=== PATIENT | female | born 1975 | race Caucasian/White ===

== ENCOUNTER → 2019-02-20 | Outpatient (CLI) | payer MEDICAID ==
[2019-02-20 09:13] LABS: Basophils % (A) 1 %; Eosinophils # (A) 0.2 k/uL (0-0.7); Eosinophils % (A) 4 %; HCT 39.5 % (34.0-46.0); HGB 12.9 gm/dL (11.4-16.0); Lymphocytes # (A) 1.5 k/uL (1.0-4.8); Lymphocytes % (A) 37 %; MCH 27.8 pg (25.0-35.0); MCHC 32.6 g/dL (31.0-37.0); MCV 85.3 fL (80.0-100.0); Mean Platelet Volume 6.8; Monocytes # (A) 0.3 k/uL (0-1.0); Monocytes % (A) 6 %; Neutrophils % (A) 50 %; Platelet Count 265 k/uL (150-450); RBC 4.63 m/uL (3.80-5.40); RDW 14.7 % (11.5-15.5)
[2019-02-20 16:14] LABS: Albumin 4.5 g/dL (3.80-4.90); Albumin/Globulin Ratio 1.96 (1.60-3.17); Anion Gap 6.8 mmol/L (4.00-12.00); Calcium 9.5 mg/dL (8.7-10.3); Carbon Dioxide 24.2 mmol/L (21.6-31.8); Globulin 2.3 g/dL (1.6-3.3); Potassium 4.4 mmol/L (3.5-5.5); Total Bilirubin 0.7 mg/dL (0.2-1.2); Total Protein 6.8 g/dL (6.2-8.2)
[2019-02-20 16:15] LABS: LDL Cholesterol,Calculated 97.4 mg/dL (0.0-131.0); VLDL Calculation 14.6 mg/dL (5.00-40.00)
[2019-02-20 16:27] LABS: T4, Free (Free Thyroxine) 0.9 ng/dL (0.80-1.80)
== END | disposition home or self-care (01) ==
LOC: LABWHC1 08:27
PROVIDERS: ATTEND Nurse Practitioner Women's Health
DX: Z00.00 Encounter for general adult medical examination without abnormal findings (principal); Z51.81 Encounter for therapeutic drug level monitoring
CPT/HCPCS: 36415; 80053; 80061; 84439; 84443; 85025

== ENCOUNTER → 2019-03-26 | Outpatient (CLI) | payer MEDICAID ==
--- NOTE | 2019-03-27 08:49 | MM ---
Reason for exam: screening (asymptomatic). Last mammogram was performed 4 years and 9 months ago. History: Took hormonal contraceptives for 10 years. Physical Findings: A clinical breast exam by your physician is recommended on an annual basis and results should be correlated with mammographic findings. MG Screening Mammo w CAD Bilateral CC and MLO view(s) were taken. Prior study comparison: July 02, 2014, bilateral MG screening mammo w CAD. The breast tissue is heterogeneously dense. This may lower the sensitivity of mammography. Overall decreasing breast density. No significant changes when compared with prior studies. ASSESSMENT: Negative, BI-RAD 1 RECOMMENDATION: Routine screening mammogram of both breasts in 1 year.
== END | disposition home or self-care (01) ==
LOC: RADMAMWWP 07:02
PROVIDERS: ATTEND Family Medicine
DX: Z12.31 Encounter for screening mammogram for malignant neoplasm of breast (principal)
CPT/HCPCS: 77067

== ENCOUNTER → 2020-06-23 | Day surgery (SDC) | payer BC, MEDICAID ==
[2020-06-19 16:41] VITALS: BMI 33.9
[~2020-06-23] MED LIST: LACTATED RINGERS 1,000 ML IV SCH; LIDOCAINE 1% (10MG/ML) FOR IV START INTRADERMA ONE; PROPOFOL 10 MG/ML 20 ML VIAL IV ONE
[2020-06-23 11:27] VITALS: RESP 16; TEMP 98.3
--- NOTE | 2020-06-23 12:43 | P.PCN ---
Date of Procedure: 06/23/20 Description of Procedure: BRIEF HISTORY: Patient is a 44-year-old female patient colonoscopy for evaluation of altered bowel function. Patient has problems with constipation. Previously this was improved with a novel secretory laxative however symptoms have worsened recently. PROCEDURE PERFORMED: Colonoscopy. PREOPERATIVE DIAGNOSIS: Altered bowel function, change in bowel habits. ESTIMATED BLOOD LOSS: Minimal. IV sedation per Anesthesia. PROCEDURE: After informed consent was obtained, the patient, was brought into the endoscopy unit. IV sedation was administered by Anesthesia under continuous monitoring. Digital rectal examination was normal. Initially the Olympus CF-190 flexible video colonoscope was then inserted in the rectum, gradually advanced into the cecum without any difficulty. Careful examination was performed as the scope was gradually being withdrawn. Ileocecal valve and the appendiceal orifice were visualized and appeared normal. Prep was excellent. Mucosa of the cecum, ascending colon, transverse colon, descending colon, sigmoid colon, and rectum appeared normal. The terminal ileum was intubated and appeared normal. Retroflexion was performed in the rectum and no lesions were seen, with low- grade internal hemorrhoids. The patient tolerated the procedure well. IMPRESSION: Normal-appearing colon from rectum to cecum, and normal-appearing terminal ileum. Low-grade internal hemorrhoids. RECOMMENDATIONS: Findings of this examination were discussed with the patient and her family. Okay to resume diet. Okay to resume medications. Would recommend repeat colonoscopy at 50 for screening for malignant neoplasm of the colon.
[2020-06-23 13:00] VITALS: BP 115/78; PULSE 88
== END ==
LOC: ORWHC2ENDO 10:28
PROVIDERS: ATTEND Internal Medicine
DX: K64.8 Other hemorrhoids (principal); F90.9 Attention-deficit hyperactivity disorder, unspecified type; G25.81 Restless legs syndrome; F98.8 Other specified behavioral and emotional disorders with onset usually occurring in childhood and adolescence; Z88.0 Allergy status to penicillin; Z79.899 Other long term (current) drug therapy
CPT/HCPCS: 81025; 45378; J2704

== ENCOUNTER → 2021-06-14 | Outpatient (CLI) | payer OTHER ==
--- NOTE | 2021-06-14 11:28 | US ---
EXAMINATION TYPE: US pelvis complete transvag DATE OF EXAM: 06/14/2021 COMPARISON: NONE CLINICAL HISTORY: R30.0 Dysuria, R31.9 Hematuria. Pain TECHNIQUE: Transvaginal (TV) and Transabdominal (TA) . Transabdominal sonographic images of the pel vis were acquired. Transvaginal sonographic images were medically necessary to better assess the fol lowing anatomy: Ovaries Date of LMP: Irregular bleeding EXAM MEASUREMENTS: Uterus: 8.1x4.4x6.2cm Endometrial Stripe: 0.8 cm Right Ovary: Not seen cm Left Ovary: 1.6x1.4x2.2 cm 1. Uterus: Anteverted wnl 2. Endometrium: wnl 3. Right Ovary: Obscured by overlying bowel gas 4. Left Ovary: Small follicle 0.9x0.7x1.2 5. Bilateral Adnexa: Obscured by overlying bowel gas 6. Posterior cul-de-sac: wnl IMPRESSION: 1. Normal pelvic ultrasound.
== END | disposition home or self-care (01) ==
LOC: RADUSWWP 07:59
PROVIDERS: ATTEND Family Medicine
DX: R30.0 Dysuria (principal); R31.9 Hematuria, unspecified; N94.10 Unspecified dyspareunia
CPT/HCPCS: 76830; 76856